=== PATIENT | male | born 1995 | race Caucasian/White ===

== ENCOUNTER 2018-01-12 20:32 | Emergency (ER) | payer BC, OTHER ==
[2018-01-12 20:50] VITALS: BP 140/77
--- NOTE | 2018-01-12 21:04 | RAD ---
INDICATION: Left lateral ankle pain after falling down stairs 2 weeks earlier COMPARISON: None. TECHNIQUE: 3 views of the left ankle were obtained. FINDINGS: There is mild soft tissue swelling overlying the left lateral fibula. The well corticated bones exhibit normal alignment. Joint spaces appear maintained. No fracture is seen. IMPRESSION: SOFT TISSUE SWELLING OVERLYING THE FIBULAR MALLEOLUS WITHOUT UNDERLYING FRACTURE OR DISLOCATION. If the patient's symptoms persist, follow-up imaging is recommended.
--- NOTE | 2018-01-12 21:22 | UC ---
Corry Duran Elizabeth, scribed for Rodriguez Mejia MD on 01/12/18 at 2052 . Lower Extremity/Ankle HPI - HPI Summary HPI Summary: This patient is a 22 year old M presenting to [facility] with a chief complaint of left ankle pain since a few weeks ago. The patient reports that his symptoms began after he was walking down some stairs and he twisted his ankle. The patient rates the pain 1/10 in severity. Symptoms aggravated by bearing weight. Symptoms alleviated by nothing. - History of Current Complaint Stated Complaint: ANKLE INJURY Time Seen by Provider: 01/12/18 20:41 Hx Obtained From: Patient Onset/Duration: Sudden Onset, Lasting Days, Still Present Severity Initially: Mild Severity Currently: Mild Pain Scale Used: 0-10 Numeric Aggravating Factor(s): Standing, Ambulation Alleviating Factor(s): Nothing Able to Bear Weight: Yes - Allergies/Home Medications Allergies/Adverse Reactions: Allergies Allergy/AdvReac Type Severity Reaction Status Date / Time No Known Allergies Allergy Verified 01/12/18 20:50 PMH/Surg Hx/FS Hx/Imm Hx Previously Healthy: Yes - Family History Known Family History: Positive: None - patient denies relevant FHx Review of Systems Constitutional: Negative - negative fever ENT: Negative - negative epistaxis Gastrointestinal: Negative - negative vomiting Musculoskeletal: Arthralgia - left ankle pain All Other Systems Reviewed And Are Negative: Yes Physical Exam - Summary Physical Exam Summary: General: well-appearing, no pain distress Skin: warm, color reflects adequate perfusion, dry Head: normal Eyes: EOMI, NANO ENT: normal Neck: supple, nontender Respiratory: CTA, breath sounds present Cardiovascular: RRR Abdomen: soft, nontender Bowel: present Musculoskeletal: strength/ROM intact, swelling and minimal tenderness to left lateral malleolus Neurological: sensory/motor intact, A&O x3 Psychological: affect/mood appropriate Triage Information Reviewed: Yes Vital Signs: Initial Vital Signs Temp 97.9 F 01/12/18 20:44 Pulse 67 01/12/18 20:44 Resp 16 01/12/18 20:44 BP 140/77 01/12/18 20:44 Pulse Ox 98 01/12/18 20:44 Vital Signs Reviewed: Yes Diagnostics - Radiology Left Ankle XR Xray Interpretation: No Acute Changes - IMPRESSION: SOFT TISSUE SWELLING OVERLYING THE FIBULAR MALLEOLUS WITHOUT UNDERLYING FRACTURE OR DISLOCATION. If the patient's symptoms persist, follow-up imaging is recommended. Dr. Mejia has reviewed this report. Radiology Interpretation Completed By: Radiologist Lower Extremity Course/Dx - Course Course Of Treatment: DISCUSSED X-RAY RESULTS WITH THE PATIENT. F/U SPORTS MEDICINE. - Differential Dx/Diagnosis Provider Diagnoses: LEFT ANKLE SPRAIN Discharge - Sign-Out/Discharge Documenting (check all that apply): Discharge/Admit/Transfer - Discharge Plan Condition: Stable Disposition: HOME Discharge Disposition Comment: discharge home Patient Education Materials: Ankle Sprain (ED) Referrals: [facility] [place]Outside] [facility] [place]] Carson Lawson [Medical Doctor] - Brady Fuller MD [Medical Doctor] - Additional Instructions: FOLLOW UP WITH SPORTS MEDICINE. ICE, ELEVATE AND REST THE ANKLE. TAKE IBUPROFEN 600MG THREE TIMES A DAY NEEDED. GET RECHECKED FOR ANY WORSENING OF YOUR CONDITION OR QUESTIONS OR CONCERNS. - Billing Disposition and Condition Condition: STABLE Disposition: Home The documentation as recorded by the Corry [place] Elizabeth accurately reflects the service I personally performed and the decisions made by me, Rodriguez Mejia MD.
== END 2018-01-12 21:31 | disposition home or self-care (01) ==
LOC: UCEAST 20:32
DX: S93.402A Sprain of unspecified ligament of left ankle, initial encounter (principal); X50.1XXA Overexertion from prolonged static or awkward postures, initial encounter; Y93.9 Activity, unspecified; Y99.9 Unspecified external cause status
CPT/HCPCS: 99202; G0463

== ENCOUNTER 2018-02-11 18:45 | Emergency (ER) | payer BC, OTHER ==
[2018-02-11 18:54] VITALS: BP 114/74
--- NOTE | 2018-02-11 19:09 | UC ---
Lower Extremity/Ankle HPI - HPI Summary HPI Summary: This is brett Wheatley documenting for attending Rodriguez Mejia MD. This patient is a 22 year old M presenting to [facility] with a chief complaint of bilateral lower leg pain since 1 week ago. The patient notes that the pain in worse in the left leg than the right. The patient reports that he is currently in the [employer] and has to run a lot. The patient notes that he thinks he may have austin splints. The patient rates the pain 2/10 in severity. Symptoms aggravated by running. Symptoms alleviated by nothing. The patient reports that he does stretch before running but notes that he does not have time to stretch afterwards. The patient has been taking ibuprofen and using icy-hot for pain. The patient reports that he wears shoes with good arch support when he runs. - History of Current Complaint Chief Complaint: UCLowerExtremity Stated Complaint: LEG PAIN Time Seen by Provider: 02/11/18 18:56 Hx Obtained From: Patient Onset/Duration: Gradual Onset, Lasting Weeks - 1 week, Still Present Severity Initially: Mild Severity Currently: Mild Pain Intensity: 2 Pain Scale Used: 0-10 Numeric Aggravating Factor(s): Other - running Alleviating Factor(s): Nothing - Allergies/Home Medications Allergies/Adverse Reactions: Allergies Allergy/AdvReac Type Severity Reaction Status Date / Time No Known Allergies Allergy Verified 02/11/18 18:53 Home Medications: Home Medications Fluticasone NASAL SPRAY 50MCG* [Flonase NASAL SPRAY 50MCG*] 02/11/18 [History] Ibuprofen TAB* [Advil TAB*] 800 mg PO PRN 02/11/18 [History] PMH/Surg Hx/FS Hx/Imm Hx Previously Healthy: Yes - Surgical History Surgical History: Yes Surgery Procedure, Year, and Place: WISDOM TEETH - Family History Known Family History: Positive: None - patient denies relevant FHx - Social History Alcohol Use: None Substance Use Type: None Smoking Status (MU): Never Smoked Tobacco Review of Systems Constitutional: Negative - negative fever Respiratory: Negative - negative cough Gastrointestinal: Negative - negative vomiting Musculoskeletal: Myalgia - bilateral lower leg pain (L>R) All Other Systems Reviewed And Are Negative: Yes Physical Exam - Summary Physical Exam Summary: General: well-appearing, no pain distress Skin: warm, color reflects adequate perfusion, dry Head: normal Eyes: EOMI, NANO ENT: normal Neck: supple, nontender Respiratory: CTA, breath sounds present Cardiovascular: RRR Abdomen: soft, nontender Bowel: present Musculoskeletal: strength/ROM intact, tender in anterior tibia of left leg, tender in medial calf of left leg, no swelling in calf, no cords palpated Neurological: sensory/motor intact, A&O x3 Psychological: affect/mood appropriate Triage Information Reviewed: Yes Vital Signs: Initial Vital Signs Temp 97.7 F 02/11/18 18:50 Pulse 56 02/11/18 18:50 Resp 16 02/11/18 18:50 BP 114/74 02/11/18 18:50 Pulse Ox 100 02/11/18 18:50 Vital Signs Reviewed: Yes Diagnostics - Radiology Left Lower Leg XR Xray Interpretation: No Acute Changes - IMPRESSION: NO EVIDENCE OF FRACTURE. Dr. Mejia has reviewed this report. Radiology Interpretation Completed By: Radiologist Lower Extremity Course/Dx - Course Course Of Treatment: THE CLINICAL PRESENTATION AND EXAM IS CONSISTENT WITH [place] SPLINTS AND MUSCLE STRAIN. NO CALF SWELLING OR CORD PALPATED TO INDICATE DVT. THIS WAS DISCUSSED WITH THE PATIENT TO INCLUDE RECHECK IF THERE IS CALF SWELLING OR INCREASING/SPREADING PAIN. F/U PMD OR RETURN IF NOT COMPLETELY BETTER. - Differential Dx/Diagnosis Provider Diagnoses: LEFT LEG [place]USTIN SPLINTS. LEFT CALF MUSCLE STRAIN Discharge - Sign-Out/Discharge Documenting (check all that apply): Patient Departure - Discharge Plan Condition: Stable Disposition: HOME Patient Education Materials: Muscle Strain (ED), [place] Splints (ED) Referrals: [facility] [place] [facility] [Outside] Additional Instructions: FOLLOW UP WITH YOUR DOCTOR IF NOT COMPLETELY IMPROVED. GET RECHECKED FOR ANY WORSENING OF YOUR CONDITION; MORE CALF PAIN AND/OR SWELLING OR QUESTIONS OR CONCERNS. - Billing Disposition and Condition Condition: STABLE Disposition: Home
--- NOTE | 2018-02-11 19:21 | RAD ---
INDICATION: Left cabrera and calf pain. TECHNIQUE: 2 views of the left lower leg were obtained. FINDINGS: The bones are normal alignment. No fracture is seen. IMPRESSION: NO EVIDENCE OF FRACTURE.
== END 2018-02-11 19:56 | disposition home or self-care (01) ==
LOC: UCEAST 18:45
DX: S86.912A Strain of unspecified muscle(s) and tendon(s) at lower leg level, left leg, initial encounter (principal); M76.812 Anterior tibial syndrome, left leg; X58.XXXA Exposure to other specified factors, initial encounter; Y92.9 Unspecified place or not applicable
CPT/HCPCS: 99211; G0463

== ENCOUNTER 2018-10-06 21:33 | Emergency (ER) | payer BC ==
--- NOTE | 2018-10-06 21:40 | UC ---
FLU HPI - HPI Summary HPI Summary: 23 yo male presents with fatigue, body aches, sinus congestion, and dry cough since yesterday. He tells me that many of his coworkers have been sick with the flu and he is concerned that he may have it. He took a decongestant earlier today with no change in his symptoms. He denies fever, chills, SOB, abdominal pain, n/v. - History of Current Complaint Stated Complaint: FLU-LIKE SYM Time Seen by Provider: 10/06/18 21:40 Hx Obtained From: Patient Onset/Duration: Sudden Onset Severity Currently: Moderate Severity Initially: Moderate Pain Intensity: 5 Pain Scale Used: 0-10 Numeric - Allergy/Home Medications Allergies/Adverse Reactions: Allergies Allergy/AdvReac Type Severity Reaction Status Date / Time No Known Allergies Allergy Verified 06/03/18 08:53 PMH/Surg Hx/FS Hx/Imm Hx - Additional Past Medical History Additional PMH: None - Surgical History Surgical History: Yes Surgery Procedure, Year, and Place: WISDOM TEETH - Family History Known Family History: Positive: None - patient denies relevant FHx - Social History Occupation: Employed Full-time Lives: With Family Alcohol Use: Occasionally Substance Use Type: None Smoking Status (MU): Never Smoked Tobacco - Immunization History Vaccination Up to Date: Yes Review of Systems All Other Systems Reviewed And Are Negative: Yes Constitutional: Positive: Chills, Fatigue, Other - Body aches Skin: Positive: Negative Eyes: Positive: Negative ENT: Positive: Sinus Congestion Respiratory: Positive: Cough Cardiovascular: Positive: Negative Gastrointestinal: Positive: Negative Neurovascular: Positive: Negative Neurological: Positive: Negative Psychological: Positive: Negative Physical Exam - Summary Physical Exam Summary: GENERAL: NAD. WDWN. No pain distress. SKIN: No rashes, sores, lesions, or open wounds. HEENT: Head: AT/NC Eyes: EOM intact. Conjunctiva clear without inflammation or discharge. Ears: Hearing grossly normal. RIGHT TM with mild erythema and bulging. No canal edema or drainage. LEFT TM WNL and intact. Nose: Nasal mucosa pink and moist. NTTP maxillary and frontal sinus. Throat: Posterior oropharynx without exudates, erythema, or tonsillar enlargement. Uvula midline. NECK: Supple. Nontender. No lymphadenopathy. CHEST: CTAB. No r/r/w. No accessory muscle use. Breathing comfortably and in no distress. CV: RRR. Without m/r/g. Pulses intact. Cap refill <2seconds NEURO: Alert. PSYCH: Age appropriate behavior. Triage Information Reviewed: Yes Vital Signs: Vital Signs: Temp Pulse Resp BP Pulse Ox 98.9 F 88 18 143/81 100 10/06/18 21:54 10/06/18 21:54 10/06/18 21:54 10/06/18 21:54 10/06/18 21:54 Laboratory Tests 10/06/18 21:56 Influenza A (Rapid) Negative Influenza B (Rapid) Negative Vital Signs Reviewed: Yes Flu Course/Dx - Course Course Of Treatment: POC flu negative. Right otitis media. - Differential Dx/Diagnosis Provider Diagnosis: Otitis media Discharge - Sign-Out/Discharge Documenting (check all that apply): Patient Departure All imaging exams completed and their final reports reviewed: No Studies - Discharge Plan Condition: Stable Disposition: HOME Prescriptions: Amoxicillin PO (*) [Amoxicillin 500 MG CAP*] 500 mg PO Q12H #14 cap Patient Education Materials: Ear Infection (ED) Forms: *Work Release Referrals: Jem Kirkland MD [Primary Care Provider] - Additional Instructions: If you develop a fever, shortness of breath, chest pain, new or worsening symptoms - please call your PCP or go to the ED. - Billing Disposition and Condition Condition: STABLE Disposition: Home
[2018-10-06 21:56] VITALS: BP 143/81
[2018-10-06 22:08] LABS: Influenza A Molecular NEGATIVE (Negative); Influenza B Molecular NEGATIVE (Negative)
[2018-10-06] MEDS ORDERED: Amoxicillin PO (*) 500 MG CAP PO ONE (22:09)
== END 2018-10-06 22:20 | disposition home or self-care (01) ==
LOC: UCEAST 21:33
DX: H66.91 Otitis media, unspecified, right ear (principal); R09.81 Nasal congestion; R05 Cough; R53.83 Other fatigue
CPT/HCPCS: 99212; A9270-GY; G0463